=== PATIENT | male | born 1945 | race Asian ===

== ENCOUNTER 2021-07-11 02:16 | Inpatient (IN) | payer MEDICARE, BC ==
[2021-07-11] MEDS ORDERED: Diltiazem 125 MG/25 ML ONE (02:49)
[2021-07-11] MEDS ORDERED: Diltiazem HCl 125 MG, Admixture Fee 1 EACH in Sodium Chloride 0.9% 100 ML IVPB SCH (03:00)
[2021-07-11] MEDS ORDERED: Morphine 4 MG/ML VIAL ONE (03:12)
[2021-07-11] MEDS ORDERED: Ondansetron PF 4 MG/2 ML Vial ONE (03:12)
[2021-07-11 03:18] LABS: #Eosinphils 0.1 thou/uL (0.0-0.7); #Lymphocytes 2.1 thou/uL (1.20-3.40); #Monocytes 0.4 thou/uL (0.11-0.59); #Neutrophils 4.3 thou/uL (1.40-6.50); %Basophils 0.3 % (0.0-1.0); %Eosinophils 1.3 % (0.0-10.0); %Lymphocytes 30.2 % (21.0-51.0); %Monocytes 5.5 % (0.0-10.0); %Neutrophils 62.7 % (42.0-75.0); Hemoglobin 10.9 g/dL (14.0-18.0); Mean Corpuscular HGB CONC 34.8 g/dL (32.0-36.0); Mean Corpuscular Hemoglobin 33.1 pg (27.0-31.0); Mean Corpuscular Volume 94.9 fL (78.0-98.0); Mean Platelet Volume 7.8 fL (7.4-10.4); Platelet Count 180 thou/uL (130-400); RBC Distribution Width 14.2 % (11.5-14.5); White Blood Cell (WBC) Count 6.9 thou/uL (4.8-10.8)
[2021-07-11 03:31] LABS: ALT (SGPT) 45 U/L (8-55); AST (SGOT) 44 U/L (5-34); Albumin 3.7 g/dL (3.4-4.8); Alkaline Phosphatase 92 U/L (40-110); Anion Gap 17 mmol/L (10-20); BUN (Urea Nitrogen) 42 mg/dL (8.4-25.7); Bilirubin, Total 0.9 mg/dL (0.2-1.2); CK (CPK) 61 U/L (30-200); Calc. Creatinine Clearance 0 mL/min (70-130); Calcium 9.6 mg/dL (7.8-10.44); Carbon Dioxide 22 mmol/L (23-31); Chloride 98 mmol/L (98-107); Globulin 3.3 g/dL (2.4-3.5); Glucose 122 mg/dL (83-110); Lipase 69 U/L (8-78); Potassium 3.7 mmol/L (3.5-5.1); Sodium 133 mmol/L (136-145)
[2021-07-11 03:35] LABS: PTT 39.5 sec (22.9-36.1); Prothrombin Time 13.3 sec (12.0-14.7)
[2021-07-11 03:52] LABS: CKMB 1.1 ng/mL (0-6.6)
[2021-07-11] MEDS ORDERED: cefTRIAXone\\ROCEPHIN 1 GM VIAL ONE (05:52)
[2021-07-11] MEDS ORDERED: Vancomycin 1 GM/200 ML BAG ONE (05:52)
[2021-07-11 06:42] LABS: Troponin I 4.728 ng/mL (< 0.028)
[2021-07-11 07:02] LABS: SARS-CoV-2 NAA Rapid Test Not Detected (NotDetected)
[2021-07-11] MEDS ORDERED: Acetaminophen 325 MG TAB PO PRN (07:54)
[2021-07-11] MEDS ORDERED: Ondansetron PF 4 MG/2 ML Vial IVP PRN (07:54)
[2021-07-11] MEDS ORDERED: Enoxaparin Sodium 80 MG/0.8 ML SYRINGE SC SCH (08:00)
[2021-07-11] MEDS ORDERED: Sodium Chloride 0.9% 1,000 ML IV SCH (08:00)
[2021-07-11] MEDS ORDERED: Iopamidol-370 76% 500 ML 1 ML ONE (09:33)
[2021-07-11 10:59] LABS: Troponin I 24.037 ng/mL (< 0.028)
[2021-07-11 12:00] LABS: CKMB 28.2 ng/mL (0-6.6)
[2021-07-11] MEDS ORDERED: FLU VACC QS2021-22(65YR UP)/PF 240 MCG/0.7 ML SYRINGE IM ONE (12:30)
[2021-07-11] MEDS: Furosemide 20 MG/2 ML VIAL SLOW IVP SCH (14:33)
[2021-07-11] MEDS: Cefepime 1 GM in Sodium Chloride 0.9% 100 ML IVPB SCH ×2 (14:34→21:01)
[2021-07-11] MEDS: Aspirin Chewable 81 MG TAB PO SCH (14:43)
[2021-07-11] MEDS: Atorvastatin Calcium 40 MG TAB PO SCH (21:01)
[2021-07-11] MEDS: Enoxaparin Sodium 80 MG/0.8 ML SYRINGE SC SCH (21:01)
[2021-07-11] MEDS: Metoprolol Tartrate 25 MG TAB PO SCH (21:02)
[2021-07-12 05:52] LABS: #Eosinphils 0.1 thou/uL (0.0-0.7); #Lymphocytes 1.3 thou/uL (1.20-3.40); #Monocytes 0.4 thou/uL (0.11-0.59); #Neutrophils 3.5 thou/uL (1.40-6.50); %Basophils 0.6 % (0.0-1.0); %Eosinophils 1.7 % (0.0-10.0); %Lymphocytes 24.6 % (21.0-51.0); %Monocytes 7.2 % (0.0-10.0); Hemoglobin 10.5 g/dL (14.0-18.0); Mean Corpuscular HGB CONC 33.3 g/dL (32.0-36.0); Mean Corpuscular Hemoglobin 31.4 pg (27.0-31.0); Mean Corpuscular Volume 94.4 fL (78.0-98.0); Mean Platelet Volume 7.2 fL (7.4-10.4); Platelet Count 244 thou/uL (130-400); RBC Distribution Width 14.5 % (11.5-14.5); Red Blood Cell (RBC) Count 3.34 mill/uL (4.70-6.10); White Blood Cell (WBC) Count 5.3 thou/uL (4.8-10.8)
[2021-07-12 05:59] LABS: Hemoglobin A1c 5.7 % (4.0-6.0)
[2021-07-12 06:09] LABS: ALT (SGPT) 40 U/L (8-55); AST (SGOT) 67 U/L (5-34); Albumin 3.2 g/dL (3.4-4.8); Alkaline Phosphatase 89 U/L (40-110); Anion Gap 11 mmol/L (10-20); BUN (Urea Nitrogen) 22 mg/dL (8.4-25.7); Calc. Creatinine Clearance 83 mL/min (70-130); Calcium 9.3 mg/dL (7.8-10.44); Carbon Dioxide 27 mmol/L (23-31); Cardiac Risk 3.9 (Less than 4.5); Chloride 100 mmol/L (98-107); Cholesterol 177 mg/dl (< 200 Desired); Globulin 3.4 g/dL (2.4-3.5); Glucose 100 mg/dL (83-110); HDL Cholesterol 45 mg/dL (>60 Neg Risk); LDL Cholesterol, Calculated 119 mg/dL; Potassium 3.9 mmol/L (3.5-5.1); Protein, Total 6.6 g/dL (5.8-8.1); Sodium 134 mmol/L (136-145); Triglycerides 64 mg/dL (Less than 150)
[2021-07-12] MEDS: Furosemide 20 MG/2 ML VIAL SLOW IVP SCH ×2 (06:15→16:28)
[2021-07-12 06:19] LABS: Critical Call Chem Troponin I RESULT DECREASING; Troponin I 10.268 ng/mL (< 0.028)
[2021-07-12] MEDS: Metoprolol Tartrate 25 MG TAB PO SCH ×2 (08:30→20:45)
[2021-07-12] MEDS: Aspirin Chewable 81 MG TAB PO SCH (08:30)
[2021-07-12] MEDS: Enoxaparin Sodium 80 MG/0.8 ML SYRINGE SC SCH ×2 (08:31→20:45)
[2021-07-12] MEDS: Cefepime 1 GM in Sodium Chloride 0.9% 100 ML IVPB SCH ×2 (08:31→20:45)
[2021-07-12 09:00] VITALS: BMI 22.4
[2021-07-12] MEDS: Atorvastatin Calcium 40 MG TAB PO SCH (20:45)
[2021-07-13 05:04] LABS: #Eosinphils 0.1 thou/uL (0.0-0.7); #Lymphocytes 1.8 thou/uL (1.20-3.40); #Monocytes 0.6 thou/uL (0.11-0.59); #Neutrophils 3.2 thou/uL (1.40-6.50); %Basophils 0.5 % (0.0-1.0); %Eosinophils 2.6 % (0.0-10.0); %Lymphocytes 31.1 % (21.0-51.0); %Monocytes 9.7 % (0.0-10.0); Hemoglobin 10.7 g/dL (14.0-18.0); Mean Corpuscular HGB CONC 32.7 g/dL (32.0-36.0); Mean Corpuscular Hemoglobin 30.7 pg (27.0-31.0); Mean Corpuscular Volume 94.1 fL (78.0-98.0); Mean Platelet Volume 7.2 fL (7.4-10.4); Platelet Count 267 thou/uL (130-400); RBC Distribution Width 14.6 % (11.5-14.5); Red Blood Cell (RBC) Count 3.49 mill/uL (4.70-6.10); White Blood Cell (WBC) Count 5.7 thou/uL (4.8-10.8)
[2021-07-13 05:22] LABS: Anion Gap 13 mmol/L (10-20); BUN (Urea Nitrogen) 16 mg/dL (8.4-25.7); Calc. Creatinine Clearance 76 mL/min (70-130); Calcium 9.2 mg/dL (7.8-10.44); Carbon Dioxide 27 mmol/L (23-31); Chloride 99 mmol/L (98-107); Glucose 99 mg/dL (83-110); Potassium 4.2 mmol/L (3.5-5.1); Sodium 135 mmol/L (136-145)
[2021-07-13] MEDS: Furosemide 20 MG/2 ML VIAL SLOW IVP SCH ×2 (05:23→14:11)
[2021-07-13 05:36] LABS: Critical Call Chem Troponin I RESULT DECREASING
[2021-07-13] MEDS: Cefepime 1 GM in Sodium Chloride 0.9% 100 ML IVPB SCH (09:10)
[2021-07-13] MEDS: Aspirin Chewable 81 MG TAB PO SCH (09:13)
[2021-07-13] MEDS: Metoprolol Tartrate 25 MG TAB PO SCH (09:13)
[2021-07-13] MEDS: Enoxaparin Sodium 80 MG/0.8 ML SYRINGE SC SCH (09:13)
[2021-07-13 13:22] VITALS: BP 101/55; TEMP 98
== END 2021-07-13 18:12 | disposition short-term general hospital (02) | DRG 280 ==
LOC: SUATTDRO 02:16 → ERS 02:16 → 2SW 05:42 → OBSVTOIN 11:16
PROVIDERS: ADMIT Internal Medicine; ATTEND Internal Medicine
DX: I11.0 Hypertensive heart disease with heart failure (principal); I21.4 Non-ST elevation (NSTEMI) myocardial infarction; Z20.822 Contact with and (suspected) exposure to COVID-19; I50.23 Acute on chronic systolic (congestive) heart failure; J18.9 Pneumonia, unspecified organism; I48.92 Unspecified atrial flutter; E87.1 Hypo-osmolality and hyponatremia; E78.5 Hyperlipidemia, unspecified; I25.10 Atherosclerotic heart disease of native coronary artery without angina pectoris; I48.91 Unspecified atrial fibrillation; I35.0 Nonrheumatic aortic (valve) stenosis; Y95 Nosocomial condition; D64.9 Anemia, unspecified; Z95.1 Presence of aortocoronary bypass graft; Z79.01 Long term (current) use of anticoagulants; Z79.899 Other long term (current) drug therapy; Z79.82 Long term (current) use of aspirin
CPT/HCPCS: 36415; 71045; 71275; 80048; 80053; 80061; 82550; 82553; 83036; 83690; 83880; 84443; 84484; 85025; 85610; 85730; 93005; 93306; 96365; 96367; 96375; G0378; J0692; J0696; J1650; J1940; J2270; J2405; J3370; J3490; Q9967; U0002

== ENCOUNTER 2023-08-12 00:10 | Inpatient (IN) | payer MEDICARE, BC ==
[2023-08-12] MEDS ORDERED: Ketorolac Tromethamine 30 MG/ML VIAL ONE (00:29)
[2023-08-12] MEDS ORDERED: Piperacillin/Tazobactam 4.5 GM VIAL ONE (01:06)
[2023-08-12] MEDS ORDERED: Sodium Chloride 0.9% 100 ML ONE ×2 (01:07→05:19)
[2023-08-12 01:14] LABS: #Monocytes 0.3 thou/uL (0.11-0.59); #Neutrophils 8.7 thou/uL (1.40-6.50); %Basophils 0.2 % (0.0-1.0); %Eosinophils 0.1 % (0.0-10.0); %Lymphocytes 3.5 % (21.0-51.0); %Monocytes 3.1 % (0.0-10.0); %Neutrophils 92.6 % (42.0-75.0); Hematocrit 33.3 % (42.0-52.0); Hemoglobin 11.4 g/dL (14.0-18.0); Mean Corpuscular HGB CONC 34.2 g/dL (32.0-36.0); Mean Corpuscular Hemoglobin 30.9 pg (27.0-31.0); Mean Corpuscular Volume 90.2 fl (78.0-98.0); Mean Platelet Volume 10.4 fL (7.4-10.4); Platelet Count 99 10x3/uL (130-400); RBC Distribution Width 14.2 % (11.5-14.5); Red Blood Cell (RBC) Count 3.69 mill/uL (4.70-6.10); White Blood Cell (WBC) Count 9.4 10x3/uL (4.8-10.8)
[2023-08-12 01:18] LABS: Actual Bicarbonate (HCO3v) 21.6 mEq/L (22-28); Base Excess -1.4 mEq/L (-2.0 to +3.0); Calcium, Ionized (venous) 1.08 mmol/L (1.16-1.32); Chloride (VBG) 95 mmol/L (98-106); Hematocrit-VBG 36 % (42.0-52.0); Hemoglobin (Hb) 12.1 g/dL (12.6-17.4); Potassium (VBG) 3.81 mmol/L (3.70-5.30); Sodium 127 mmol/L (133-146); pH (venous) 7.461 (7.32-7.43)
[2023-08-12 01:30] LABS: INR-International Normal Ratio 2.3; Prothrombin Time 26.2 sec (12.0-14.7)
[2023-08-12 01:42] LABS: Troponin I 0.095 ng/mL (< 0.028)
[2023-08-12 01:47] LABS: ALT (SGPT) 25 U/L (8-55); AST (SGOT) 33 U/L (5-34); Albumin 3.7 g/dL (3.4-4.8); Alkaline Phosphatase 98 U/L (40-110); BUN (Urea Nitrogen) 24 mg/dL (8.4-25.7); Bilirubin, Total 1.7 mg/dL (0.2-1.2); Calc. Creatinine Clearance 0 mL/min (70-130); Calcium 9.4 mg/dL (7.8-10.44); Carbon Dioxide 22 mmol/L (23-31); Estimated GFR 56; Glucose 134 mg/dL (83-110); Protein, Total 6.7 g/dL (5.8-8.1)
[2023-08-12 02:04] LABS: Chloride 96 mmol/L (98-107); Potassium 3.8 mmol/L (3.5-5.1); Sodium 128 mmol/L (136-145)
[2023-08-12 02:06] LABS: Anion Gap 15 mmol/L (10-20)
[2023-08-12 02:10] LABS: Bacteria/HPF 2+ HPF (None Seen); Bilirubin Negative (Negative); Blood, Urine 2+ (Negative); CAUTI Indications for Culture Pelvic or flank pain; Clarity Turbid (Clear); Glucose, Urine (Dipstick) 30 mg/dL (Negative); Ketone, Urine Negative (Negative); Leukocyte 500 Leu/uL (Negative); Nitrite 2+ (Negative); Protein, Urine (Dipstick) 100 mg/dL (Neg-Trace); Specific Gravity, Urine 1.016 (1.002-1.036); Squamous Epithelial None Seen HPF (0-3); Urine Culture Reflex Yes Yes; Urobilinogen Normal mg/dL (Less than 2); WBC/HPF Greater than 50 HPF (0-3)
[2023-08-12 02:21] LABS: SARS-CoV-2 NAA Rapid Test Not Detected (NotDetected)
[2023-08-12] MEDS ORDERED: Ondansetron PF 4 MG/2 ML Vial IVP PRN (03:43)
[2023-08-12] MEDS ORDERED: Ondansetron ODT 4 MG TAB PO PRN (03:43)
[2023-08-12] MEDS ORDERED: Acetaminophen 650 MG Suppository PR PRN (03:43)
[2023-08-12] MEDS ORDERED: Sodium Chloride 0.9% 1,000 ML IV SCH (03:45)
[2023-08-12 03:47] VITALS: BMI 23.6
[2023-08-12 04:19] LABS: Troponin I 0.158 ng/mL (< 0.028)
[2023-08-12] MEDS ORDERED: Piperacillin/Tazobactam 3.375 GM VIAL ONE (05:19)
[2023-08-12] MEDS: Piperacillin/Tazobactam 3.375 GM in Sodium Chloride 0.9% 100 ML IVPB SCH ×2 (06:04→12:02)
[2023-08-12] MEDS ORDERED: Ipratropium/Albuterol 3 ML NEB NEB PRN (11:14)
[2023-08-12] MEDS ORDERED: Acetaminophen 500 MG TAB PO SCH (11:15)
[2023-08-12] MEDS: Aspirin Chewable 81 MG TAB PO SCH (11:25)
[2023-08-12] MEDS ORDERED: Metoprolol Tartrate 5 MG/5 ML VIAL IVP SCH (11:45)
[2023-08-12] MEDS ORDERED: Furosemide 20 MG/2 ML VIAL SLOW IVP SCH (11:45)
[2023-08-12 12:33] LABS: #Monocytes 0.6 thou/uL (0.11-0.59); #Neutrophils 9.9 thou/uL (1.40-6.50); %Basophils 0.3 % (0.0-1.0); %Eosinophils 0.2 % (0.0-10.0); %Monocytes 4.6 % (0.0-10.0); %Neutrophils 80.4 % (42.0-75.0); Hematocrit 38.6 % (42.0-52.0); Hemoglobin 12.8 g/dL (14.0-18.0); Mean Corpuscular HGB CONC 33.2 g/dL (32.0-36.0); Mean Corpuscular Hemoglobin 30.6 pg (27.0-31.0); Mean Corpuscular Volume 92.3 fl (78.0-98.0); Mean Platelet Volume 10.5 fL (7.4-10.4); Platelet Count 97 10x3/uL (130-400); RBC Distribution Width 14.7 % (11.5-14.5); Red Blood Cell (RBC) Count 4.18 mill/uL (4.70-6.10); White Blood Cell (WBC) Count 12.3 10x3/uL (4.8-10.8)
[2023-08-12 13:03] LABS: Anion Gap 20 mmol/L (10-20); BUN (Urea Nitrogen) 25 mg/dL (8.4-25.7); Calc. Creatinine Clearance 48 mL/min (70-130); Carbon Dioxide 17 mmol/L (23-31); Chloride 99 mmol/L (98-107); Sodium 132 mmol/L (136-145)
[2023-08-12 13:04] LABS: ALT (SGPT) 25 U/L (8-55); AST (SGOT) 38 U/L (5-34); Albumin 3.6 g/dL (3.4-4.8); Alkaline Phosphatase 102 U/L (40-110); Calcium 8.7 mg/dL (7.8-10.44); Estimated GFR 54; Globulin 3.8 g/dL (2.4-3.5); Glucose 100 mg/dL (83-110); Protein, Total 7.4 g/dL (5.8-8.1)
[2023-08-12] MEDS ORDERED: Iopamidol 370 76% 100 ML VIAL ONE (13:08)
[2023-08-12] MEDS ORDERED: VANCOMYCIN IVPB PRN (13:18)
[2023-08-12] MEDS ORDERED: Vancomycin (BATCH) 1.25 GM in Premix 1 BAG IVPB SCH ×2 (14:00→22:00)
[2023-08-12] MEDS ORDERED: Meropenem 1 GM in Sodium Chloride 0.9% 100 ML IVPB SCH ×3 (15:00→23:59)
[2023-08-12 15:53] LABS: Lactic Acid 1.9 mmol/L (0.5-2.2)
[2023-08-12] MEDS: Acetaminophen 325 MG TAB PO PRN ×2 (17:31→21:30)
[2023-08-12] MEDS: dilTIAZem 125 MG, Admixture Fee 1 EACH in Sodium Chloride 0.9% 100 ML IVPB SCH (18:21)
[2023-08-12] MEDS ORDERED: Vancomycin 1 GM in Premix 1 BAG IVPB SCH (21:00)
[2023-08-12] MEDS: Atorvastatin Calcium 40 MG TAB PO SCH (21:31)
[2023-08-13] MEDS: Acetaminophen 325 MG TAB PO PRN ×3 (02:55→16:24)
[2023-08-13 05:29] LABS: #Monocytes 0.5 thou/uL (0.11-0.59); #Neutrophils 7.4 thou/uL (1.40-6.50); %Basophils 0.4 % (0.0-1.0); %Eosinophils 0.1 % (0.0-10.0); %Lymphocytes 3.6 % (21.0-51.0); %Monocytes 6.4 % (0.0-10.0); %Neutrophils 88.8 % (42.0-75.0); Hemoglobin 10.1 g/dL (14.0-18.0); Mean Corpuscular HGB CONC 34.6 g/dL (32.0-36.0); Mean Corpuscular Hemoglobin 30.9 pg (27.0-31.0); RBC Distribution Width 14.5 % (11.5-14.5); Red Blood Cell (RBC) Count 3.27 mill/uL (4.70-6.10); White Blood Cell (WBC) Count 8.3 10x3/uL (4.8-10.8)
[2023-08-13 05:38] LABS: Platelet Count 89 10x3/uL (130-400)
[2023-08-13 05:39] LABS: Hematocrit 29.2 % (42.0-52.0); Mean Corpuscular Volume 89.3 fl (78.0-98.0)
[2023-08-13 05:41] LABS: INR-International Normal Ratio 1.7; Prothrombin Time 20.6 sec (12.0-14.7)
[2023-08-13 05:42] LABS: PTT 46.7 sec (22.9-36.1)
[2023-08-13 05:51] LABS: Anion Gap 11 mmol/L (10-20); BUN (Urea Nitrogen) 23 mg/dL (8.4-25.7); Calc. Creatinine Clearance 59 mL/min (70-130); Calcium 8.2 mg/dL (7.8-10.44); Carbon Dioxide 21 mmol/L (23-31); Chloride 100 mmol/L (98-107); Estimated GFR 69; Glucose 139 mg/dL (83-110); Potassium 3.3 mmol/L (3.5-5.1); Sodium 129 mmol/L (136-145)
[2023-08-13] MEDS: dilTIAZem 125 MG, Admixture Fee 1 EACH in Sodium Chloride 0.9% 100 ML IVPB SCH ×2 (07:25→16:21)
[2023-08-13] MEDS ORDERED: Electrolyte Replacement Protocol FS PRN (07:45)
[2023-08-13] MEDS ORDERED: Potassium Chloride 20 MEQ TAB PO SCH (08:00)
[2023-08-13] MEDS: Aspirin Chewable 81 MG TAB PO SCH (08:53)
[2023-08-13] MEDS: Meropenem 1 GM in Sodium Chloride 0.9% 100 ML IVPB SCH ×2 (08:55→16:20)
[2023-08-13 13:25] LABS: Potassium 3.8 mmol/L (3.5-5.1)
[2023-08-13] MEDS ORDERED: Ibuprofen 200 MG TAB PO SCH (18:00)
[2023-08-13] MEDS ORDERED: Pantoprazole 40 MG VIAL IVP SCH (18:00)
[2023-08-13] MEDS ORDERED: Apixaban 5 MG TAB PO SCH (21:00)
[2023-08-13] MEDS: Apixaban 5 MG TAB PO SCH (22:09)
[2023-08-13] MEDS: Tamsulosin HCl 0.4 MG CAP PO SCH (22:10)
[2023-08-13] MEDS: Atorvastatin Calcium 40 MG TAB PO SCH (22:11)
[2023-08-14] MEDS: Meropenem 1 GM in Sodium Chloride 0.9% 100 ML IVPB SCH ×3 (01:31→16:37)
[2023-08-14 05:03] LABS: #Monocytes 0.4 thou/uL (0.11-0.59); #Neutrophils 3.8 thou/uL (1.40-6.50); %Basophils 0.2 % (0.0-1.0); %Eosinophils 0.4 % (0.0-10.0); %Lymphocytes 8.3 % (21.0-51.0); %Monocytes 8.1 % (0.0-10.0); %Neutrophils 81.1 % (42.0-75.0); Hemoglobin 10.8 g/dL (14.0-18.0); Mean Corpuscular HGB CONC 33.8 g/dL (32.0-36.0); Mean Corpuscular Hemoglobin 31.1 pg (27.0-31.0); Mean Platelet Volume 10.1 fL (7.4-10.4); RBC Distribution Width 14.6 % (11.5-14.5); Red Blood Cell (RBC) Count 3.47 mill/uL (4.70-6.10); White Blood Cell (WBC) Count 4.7 10x3/uL (4.8-10.8)
[2023-08-14 05:06] LABS: Platelet Count 86 10x3/uL (130-400)
[2023-08-14 05:07] LABS: Mean Corpuscular Volume 92.2 fl (78.0-98.0)
[2023-08-14 05:24] LABS: Anion Gap 11 mmol/L (10-20); BUN (Urea Nitrogen) 24 mg/dL (8.4-25.7); Calc. Creatinine Clearance 66 mL/min (70-130); Calcium 8.2 mg/dL (7.8-10.44); Carbon Dioxide 21 mmol/L (23-31); Chloride 104 mmol/L (98-107); Estimated GFR 79; Glucose 111 mg/dL (83-110); Potassium 3.7 mmol/L (3.5-5.1); Sodium 132 mmol/L (136-145)
[2023-08-14] MEDS: dilTIAZem 125 MG, Admixture Fee 1 EACH in Sodium Chloride 0.9% 100 ML IVPB SCH ×2 (06:00→18:15)
[2023-08-14] MEDS: Aspirin Chewable 81 MG TAB PO SCH (09:12)
[2023-08-14] MEDS: Apixaban 5 MG TAB PO SCH ×2 (09:12→21:24)
[2023-08-14] MEDS: Acetaminophen 325 MG TAB PO PRN (16:38)
[2023-08-14] MEDS: Tamsulosin HCl 0.4 MG CAP PO SCH (21:24)
[2023-08-14] MEDS: Atorvastatin Calcium 40 MG TAB PO SCH (21:24)
[2023-08-15] MEDS: Meropenem 1 GM in Sodium Chloride 0.9% 100 ML IVPB SCH ×4 (00:13→23:36)
[2023-08-15] MEDS: dilTIAZem 125 MG, Admixture Fee 1 EACH in Sodium Chloride 0.9% 100 ML IVPB SCH ×2 (06:31→18:48)
[2023-08-15] MEDS: Apixaban 5 MG TAB PO SCH ×2 (08:40→20:42)
[2023-08-15] MEDS: Aspirin Chewable 81 MG TAB PO SCH (08:40)
[2023-08-15] MEDS ORDERED: FLU VACC QS2023(65UP)/MF59C/PF 60 MCG/0.5 ML SYRINGE IM ONE (09:00)
[2023-08-15] MEDS: Acetaminophen 325 MG TAB PO PRN (13:25)
[2023-08-15] MEDS ORDERED: Senokot S 8.6-50 MG TAB PO PRN (17:43)
[2023-08-15] MEDS: dilTIAZem ER 60 MG CAP PO SCH (20:42)
[2023-08-15] MEDS: Atorvastatin Calcium 40 MG TAB PO SCH (20:42)
[2023-08-15] MEDS: Tamsulosin HCl 0.4 MG CAP PO SCH (20:43)
[2023-08-16] MEDS: Polyethylene Glycol 3350 17 GM Packet PO SCH (08:35)
[2023-08-16] MEDS: Meropenem 1 GM in Sodium Chloride 0.9% 100 ML IVPB SCH ×3 (08:36→23:40)
[2023-08-16] MEDS: dilTIAZem ER 60 MG CAP PO SCH ×2 (08:36→21:18)
[2023-08-16] MEDS: Aspirin Chewable 81 MG TAB PO SCH (08:36)
[2023-08-16] MEDS: Apixaban 5 MG TAB PO SCH (08:36)
[2023-08-16 11:26] LABS: Anion Gap 11 mmol/L (10-20); BUN (Urea Nitrogen) 13 mg/dL (8.4-25.7); Calc. Creatinine Clearance 81 mL/min (70-130); Calcium 8.6 mg/dL (7.8-10.44); Carbon Dioxide 21 mmol/L (23-31); Chloride 100 mmol/L (98-107); Estimated GFR 90; Glucose 120 mg/dL (83-110); Magnesium 1.7 mg/dL (1.6-2.6); Potassium 3.9 mmol/L (3.5-5.1); Sodium 128 mmol/L (136-145)
[2023-08-16] MEDS ORDERED: Magnesium 2 GM/50 ML(in water) 2 GM in Premix 1 BAG IVPB SCH (14:00)
[2023-08-16] MEDS: Tamsulosin HCl 0.4 MG CAP PO SCH (21:18)
[2023-08-16] MEDS: Atorvastatin Calcium 40 MG TAB PO SCH (21:18)
[2023-08-16] MEDS: Apixaban 2.5 MG TAB PO SCH (21:18)
[2023-08-17 03:54] LABS: Hematocrit 33.7 % (42.0-52.0); Hemoglobin 11.5 g/dL (14.0-18.0); Manual Diff?? YES; Mean Corpuscular HGB CONC 34.1 g/dL (32.0-36.0); Mean Corpuscular Hemoglobin 30.3 pg (27.0-31.0); Mean Corpuscular Volume 88.7 fl (78.0-98.0); Mean Platelet Volume 10.3 fL (7.4-10.4); Platelet Count 110 10x3/uL (130-400); RBC Distribution Width 14.5 % (11.5-14.5)
[2023-08-17 04:21] LABS: Anion Gap 12 mmol/L (10-20); BUN (Urea Nitrogen) 12 mg/dL (8.4-25.7); Calc. Creatinine Clearance 78 mL/min (70-130); Calcium 8.5 mg/dL (7.8-10.44); Carbon Dioxide 24 mmol/L (23-31); Chloride 99 mmol/L (98-107); Estimated GFR 89; Glucose 107 mg/dL (83-110); Magnesium 1.9 mg/dL (1.6-2.6); Potassium 3.7 mmol/L (3.5-5.1); Sodium 131 mmol/L (136-145)
[2023-08-17 04:42] LABS: Delete Auto Diff?? YES
[2023-08-17] MEDS ORDERED: Magnesium 2 GM/50 ML(in water) 2 GM in Premix 1 BAG IVPB SCH (05:00)
[2023-08-17 05:41] LABS: Anisocytosis SLIGHT = 6-15 cells HPF (0-5); Band 13 % (5-11); CellaVision Operator ID LAB.JMM; Eosinophils 6 % (0-10); Lymphocytes 12 % (21-51); Macrocytosis SLIGHT = 6-15 cells HPF (0-5); Monocytes 4 % (0-10); Neutrophil 65 % (42-75); Ovalocytes SLIGHT = 2-5 cells HPF (0-1); Platelet Adequacy Comment Platelets Decreased; Polychromasia SLIGHT = 2-3 cells HPF (0-2); Total Cell Count 100
[2023-08-17] MEDS: Meropenem 1 GM in Sodium Chloride 0.9% 100 ML IVPB SCH ×2 (08:35→15:59)
[2023-08-17] MEDS: dilTIAZem ER 60 MG CAP PO SCH ×2 (08:35→21:38)
[2023-08-17] MEDS: Polyethylene Glycol 3350 17 GM Packet PO SCH (08:35)
[2023-08-17] MEDS: Apixaban 2.5 MG TAB PO SCH ×2 (08:35→21:38)
[2023-08-17] MEDS: Aspirin Chewable 81 MG TAB PO SCH (08:35)
[2023-08-17] MEDS: Atorvastatin Calcium 40 MG TAB PO SCH (21:38)
[2023-08-17] MEDS: Tamsulosin HCl 0.4 MG CAP PO SCH (21:38)
[2023-08-18] MEDS: Meropenem 1 GM in Sodium Chloride 0.9% 100 ML IVPB SCH ×3 (00:02→16:25)
[2023-08-18 04:36] LABS: Hematocrit 32.6 % (42.0-52.0); Manual Diff?? YES; Mean Corpuscular HGB CONC 33.7 g/dL (32.0-36.0); Mean Corpuscular Hemoglobin 30.1 pg (27.0-31.0); Mean Corpuscular Volume 89.1 fl (78.0-98.0); Mean Platelet Volume 10.8 fL (7.4-10.4); Platelet Count 113 10x3/uL (130-400); RBC Distribution Width 14.3 % (11.5-14.5); Red Blood Cell (RBC) Count 3.66 mill/uL (4.70-6.10)
[2023-08-18 04:43] LABS: Delete Auto Diff?? YES
[2023-08-18 05:02] LABS: Anion Gap 11 mmol/L (10-20); BUN (Urea Nitrogen) 14 mg/dL (8.4-25.7); Calc. Creatinine Clearance 75 mL/min (70-130); Calcium 8.3 mg/dL (7.8-10.44); Carbon Dioxide 24 mmol/L (23-31); Chloride 100 mmol/L (98-107); Estimated GFR 88; Glucose 107 mg/dL (83-110); Sodium 131 mmol/L (136-145)
[2023-08-18 05:59] LABS: Band 2 % (5-11); CellaVision Operator ID lab.abc; Eosinophils 3 % (0-10); Lymphocytes 7 % (21-51); Monocytes 4 % (0-10); Myelocyte 1 % (0-0); Neutrophil 79 % (42-75); Platelet Adequacy Comment Platelets Decreased; RBC Morphology Within Normal Limits; Reactive Lymphocytes 3 % (0-10); Total Cell Count 100
[2023-08-18] MEDS ORDERED: Magnesium 2 GM/50 ML(in water) 2 GM in Premix 1 BAG IVPB SCH (08:00)
[2023-08-18] MEDS ORDERED: Magnesium 2 GM/50 ML BAG (IN WATER) ONE (08:46)
[2023-08-18] MEDS: dilTIAZem ER 60 MG CAP PO SCH ×2 (08:49→21:21)
[2023-08-18] MEDS: Aspirin Chewable 81 MG TAB PO SCH (08:49)
[2023-08-18] MEDS: Apixaban 2.5 MG TAB PO SCH ×2 (08:49→21:21)
[2023-08-18] MEDS: Polyethylene Glycol 3350 17 GM Packet PO SCH ×2 (16:25→16:31)
[2023-08-18] MEDS: Tamsulosin HCl 0.4 MG CAP PO SCH (21:21)
[2023-08-18] MEDS: Atorvastatin Calcium 40 MG TAB PO SCH (21:21)
[2023-08-19] MEDS: Meropenem 1 GM in Sodium Chloride 0.9% 100 ML IVPB SCH ×3 (00:32→16:37)
[2023-08-19 05:56] LABS: #Eosinphils 0.3 thou/uL (0.0-0.7); #Monocytes 0.5 thou/uL (0.11-0.59); #Neutrophils 8.1 thou/uL (1.40-6.50); %Basophils 0.4 % (0.0-1.0); %Eosinophils 3.3 % (0.0-10.0); %Lymphocytes 12.8 % (21.0-51.0); %Monocytes 5.2 % (0.0-10.0); Hematocrit 33.4 % (42.0-52.0); Hemoglobin 11.4 g/dL (14.0-18.0); Mean Corpuscular HGB CONC 34.1 g/dL (32.0-36.0); Mean Corpuscular Hemoglobin 30.5 pg (27.0-31.0); Mean Corpuscular Volume 89.3 fl (78.0-98.0); Mean Platelet Volume 10.8 fL (7.4-10.4); Platelet Count 136 10x3/uL (130-400); RBC Distribution Width 14.3 % (11.5-14.5); Red Blood Cell (RBC) Count 3.74 mill/uL (4.70-6.10); White Blood Cell (WBC) Count 10.5 10x3/uL (4.8-10.8)
[2023-08-19 06:19] LABS: Anion Gap 10 mmol/L (10-20); BUN (Urea Nitrogen) 17 mg/dL (8.4-25.7); Calc. Creatinine Clearance 81 mL/min (70-130); Calcium 8.6 mg/dL (7.8-10.44); Carbon Dioxide 25 mmol/L (23-31); Chloride 100 mmol/L (98-107); Estimated GFR 90; Glucose 99 mg/dL (83-110); Potassium 4.2 mmol/L (3.5-5.1); Sodium 131 mmol/L (136-145)
[2023-08-19 06:21] LABS: Phosphorus 2.4 mg/dL (2.3-4.7)
[2023-08-19] MEDS ORDERED: Magnesium 2 GM/50 ML(in water) 2 GM in Premix 1 BAG IVPB SCH (08:00)
[2023-08-19] MEDS: Polyethylene Glycol 3350 17 GM Packet PO SCH (09:44)
[2023-08-19] MEDS: Apixaban 2.5 MG TAB PO SCH ×2 (09:46→21:48)
[2023-08-19] MEDS: dilTIAZem ER 60 MG CAP PO SCH ×2 (09:46→21:48)
[2023-08-19] MEDS: Aspirin Chewable 81 MG TAB PO SCH (09:46)
[2023-08-19] MEDS: Atorvastatin Calcium 40 MG TAB PO SCH (21:48)
[2023-08-19] MEDS: Tamsulosin HCl 0.4 MG CAP PO SCH (21:48)
[2023-08-20] MEDS: Meropenem 1 GM in Sodium Chloride 0.9% 100 ML IVPB SCH ×4 (00:59→23:00)
[2023-08-20] MEDS: Polyethylene Glycol 3350 17 GM Packet PO SCH (08:29)
[2023-08-20] MEDS: Apixaban 2.5 MG TAB PO SCH ×2 (08:29→21:07)
[2023-08-20] MEDS: Aspirin Chewable 81 MG TAB PO SCH (08:29)
[2023-08-20] MEDS: dilTIAZem ER 60 MG CAP PO SCH ×2 (08:29→21:07)
[2023-08-20] MEDS: Tamsulosin HCl 0.4 MG CAP PO SCH (21:07)
[2023-08-20] MEDS: Atorvastatin Calcium 40 MG TAB PO SCH (21:07)
[2023-08-21] MEDS: Apixaban 2.5 MG TAB PO SCH (08:22)
[2023-08-21] MEDS: Meropenem 1 GM in Sodium Chloride 0.9% 100 ML IVPB SCH (08:22)
[2023-08-21] MEDS: Aspirin Chewable 81 MG TAB PO SCH (08:22)
[2023-08-21] MEDS: Polyethylene Glycol 3350 17 GM Packet PO SCH (08:22)
[2023-08-21] MEDS: dilTIAZem ER 60 MG CAP PO SCH (08:22)
[2023-08-21 12:36] VITALS: BP 137/67; TEMP 97.3
== END 2023-08-21 13:10 | DRG 871 ==
LOC: ERS 00:10 → ERHOLD 03:26 → 2SE 07:32
PROVIDERS: ADMIT Student in an Organized Health Care Education/Training Program; ATTEND Internal Medicine
PROC: 4A043R1 Measurement of Venous Saturation, Peripheral, Percutaneous Approach (ICD-10-PCS; 2023-08-12)
PROC: 02HV33Z Insertion of Infusion Device into Superior Vena Cava, Percutaneous Approach (ICD-10-PCS; principal; 2023-08-16)
PROC: B5181ZA Fluoroscopy of Superior Vena Cava using Low Osmolar Contrast, Guidance (ICD-10-PCS; 2023-08-16)
PROC: B548ZZA Ultrasonography of Superior Vena Cava, Guidance (ICD-10-PCS; 2023-08-16)
PROC: 3E04329 Introduction of Other Anti-infective into Central Vein, Percutaneous Approach (ICD-10-PCS; 2023-08-16)
DX: A41.51 Sepsis due to Escherichia coli [E. coli] (principal); I21.A1 Myocardial infarction type 2; E87.1 Hypo-osmolality and hyponatremia; I48.92 Unspecified atrial flutter; N10 Acute pyelonephritis; N17.9 Acute kidney failure, unspecified; I10 Essential (primary) hypertension; I25.10 Atherosclerotic heart disease of native coronary artery without angina pectoris; R53.1 Weakness; Q63.1 Lobulated, fused and horseshoe kidney; D64.9 Anemia, unspecified; N32.89 Other specified disorders of bladder; I48.0 Paroxysmal atrial fibrillation; G47.33 Obstructive sleep apnea (adult) (pediatric); K82.8 Other specified diseases of gallbladder; K76.89 Other specified diseases of liver; B96.20 Unspecified Escherichia coli [E. coli] as the cause of diseases classified elsewhere; N40.1 Benign prostatic hyperplasia with lower urinary tract symptoms; R33.9 Retention of urine, unspecified; R65.20 Severe sepsis without septic shock; Z95.1 Presence of aortocoronary bypass graft; Z79.82 Long term (current) use of aspirin; Z79.899 Other long term (current) drug therapy; Z11.52 Encounter for screening for COVID-19
CPT/HCPCS: 36415; 36416; 36569; 71045; 74177; 76705; 80048; 80053; 81001; 82805; 83605; 83735; 83880; 84100; 84484; 85025; 85610; 85730; 87040; 87077; 87086; 87149; 87186; 87804; 93005; 93010; 93306; 96365; 96366; 96375; C1751; C9113; J1885; J1940; J2185; J2543; J3370; J3475; J3490; J7050; Q9967; U0002

== ENCOUNTER 2023-11-22 07:34 | Outpatient (CLI) | payer MEDICARE ==
[2023-11-22] MEDS ORDERED: Iopamidol 370 76% 100 ML VIAL ONE (12:58)
== END 2023-11-22 07:35 | disposition home or self-care (01) ==
LOC: CT 07:34
PROVIDERS: ATTEND Internal Medicine Cardiovascular Disease
DX: I25.119 Atherosclerotic heart disease of native coronary artery with unspecified angina pectoris (principal); I65.21 Occlusion and stenosis of right carotid artery
CPT/HCPCS: 70498; 82565

== ENCOUNTER 2024-08-02 15:08 | Outpatient (CLI) | payer MEDICARE | END 2024-08-02 15:09 | disposition home or self-care (01) | LOC: ULT 15:08 | PROVIDERS: ATTEND Urology | DX: R33.9 Retention of urine, unspecified (principal) | CPT/HCPCS: 76770 ==